=== PATIENT | female | born 1975 | race Caucasian/White ===

== ENCOUNTER → 2024-04-17 08:19 | Outpatient (REF) | payer OTHER, SELFPAY | LOC: HWWDC 08:19 | PROVIDERS: ATTENDING PHYSICIAN Obstetrics & Gynecology; FAMILY PHYSICIAN Family Medicine | DX: Z12.31 Encounter for screening mammogram for malignant neoplasm of breast (principal) | CPT/HCPCS: 77063; 77067 ==

== ENCOUNTER 2025-03-25 19:21 | Emergency (ER) | payer OTHER, SELFPAY ==
[2025-03-25 19:25] VITALS: BP 136/87
[2025-03-25 21:39] VITALS: BMI 23.1
--- NOTE | 2025-03-25 22:41 | ED.GENMED ---
History of Present Illness
General
Chief Complaint: Skin Problem
Source: patient
Exam Limitations: none
Time Seen by Provider: 03/25/25 21:58
Nursing documentation reviewed up to this point in time: agreed with
History of Present Illness
History of Present Illness:
Patient is a 49-year-old female who presents to the emergency department with laceration of left eyebrow. Patient states she was walking up her outdoor steps quickly while holding her laptop when she tripped and fell striking her face on the
sliding glass door. She did not lose consciousness. She was able to get up independently and has been ambulating without difficulty.
Patient presents with laceration to left brow. She denies any headache or neck pain. No vomiting, visual changes, dizziness. No pain in extremities.
She is unsure of her last tetanus shot, possibly within the past 5 years. Patient is not on any blood thinners.
Review of Systems
Review of Systems
Allergies reviewed?: Yes
All Other Systems: ROS reviewed and negative except as documented in HPI and ROS
Phy Exam
Physical Exam
Physical Exam:
Vitals: Mildly hypertensive, otherwise vital signs stable. Afebrile
General: Patient is well appearing, no acute distress
Skin: Approximately 1.5 cm linear laceration just inferior to left brow. Minimal active bleeding
Head: Normocephalic. Laceration to left brow as above. Contusion to left infraorbital region. EOMIs intact without entrapment. No evidence of ocular injury.
Throat: Protecting airway
Neck: Normal ROM, no cervical spine tenderness
Cardiac: Regular rate
Pulm: No apparent respiratory distress
Abdomen: Nondistended
Extremities: No evidence of cyanosis or edema
Neuro: Grossly intact
Psychiatric: Normal affect.
Course
Vital Signs
Initial and Last Documented VS:
Initial Vital Signs
Temp Pulse Resp BP Pulse Ox
98.3 F 65 18 136/87 99
03/25/25 19:25 03/25/25 19:25 03/25/25 19:25 03/25/25 19:25 03/25/25 19:25
Last Documented Vital Signs
Temp Pulse Resp BP Pulse Ox
98.3 F 65 18 136/87 99
03/25/25 19:25 03/25/25 19:25 03/25/25 19:25 03/25/25 19:25 03/25/25 22:41
Procedures
Laceration Closure
Left Eye brow:
Status of Wound: clean
Size of Wound in cm: 1.5
Description of Wound Edges: sharp
Preparation: cleaned with saline
Revision/Debridement: routine- no revision
Wound exploration: explored to base- no FB
Type of Closure: Dermabond-skin glue
MDM/Problems Addressed
Differential Diagnosis Includes:
Not limited to: Laceration, abrasion, contusion, etc.
MDM/Problems Addressed:
55-year-old female presenting with small laceration of left eyebrow following mechanical trip and fall just prior to arrival. No loss of consciousness, vomiting, visual changes. Vitals stable. On exam � patient has approximately 1.5 cm superficial
laceration just inferior to left brow. No evidence of significant head trauma and patient neurologically intact � do not feel head CT imaging indicated at this time.
Patient also seen by attending physician to evaluate laceration. Discussed sutures versus skin adhesive. Will proceed with skin adhesive.
Verbal consent obtained by patient. Wound irrigated with normal saline and laceration closed with skin adhesive. Wound edges well approximated and hemostasis obtained. Patient tolerated procedure well. Wound care instructions discussed at length
with patient
Patient unsure of her exact last dose of a tetanus booster. Advised booster in ED however patient declines and will check with her PCP on her most recent dose and receive booster if needed.
Stable for discharge with return precautions
Chronic conditions affecting care:
N/A
Acute Exacerbation and/or Progression of Chronic Illness:
N/A
*Pulse Oximetry
SaO2: 99
Oxygen Mode of Delivery: Room air
Patient hypoxic: no
*EKG
Interpreted by ED Provider?: NA
*Refrigeration Mechanic Interpretation
Rate: Refrigeration Mechanic- N/A
*Critical Care Note
Total Time (30-74mins, 75-104mins- exclusive of procedures): Not Applicable
ED Attending Note
-
Portions of this chart may have been created with voice recognition software.� Occasional wrong word or��sound alike� substitutions may have occurred due to the inherent limitations of voice recognition software.
Discharge Plan
Departure
Patient Disposition: Home (Routine Discharge)
Date of Disposition: 03/25/25
Time of Disposition: 22:20
Patient with high blood pressure during this ER visit?: Yes
Discharge Problem:
Laceration of left eyebrow
Instructions: Wound Care (DC), Laceration Repair With Glue ED, BLOOD PRESSURE
Prescriptions:
No Action
prenat.vits,yudy,omk-fblu-gwnjk [ Vitamin] 1 TAB tablet
Singulair 10 MG Tablet
10 mg PO
Iron
Teller 3-6-9 Complex Softgel
Referrals:
Jose Angel Womack, DO [Active, Plastic Surgery]
UNKNOWN - PT DOES,NOT KNOW [Unknown Provider]
Activity Restrictions/Additional Instructions:
RETURN TO THE EMERGENCY DEPARTMENT WITH ANY BLEEDING THAT WOULD NOT STOP AT HOME OR ANY SIGNS OF WOUND INFECTION INCLUDING FEVER, SIGNIFICANT REDNESS OR PUS DRAINING FROM WOUND, WORSENING IN CURRENT SYMPTOMS, OR ANY OTHER CONCERNS
-Your laceration was closed with skin glue in the emergency department. This will dissolve on its own over the next week. Please keep wound clean, dry, and covered. Monitor for signs of infection.
-As discussed�this will likely leave a small scar. Once glue has dissolved you can apply a small amount of Vaseline. It is important to be diligent with sun protection to improve the scar appearance.
Monitor your symptoms closely and return to the emergency department with any acute worsening/new symptoms or any other concerns
Interventions
Interventions:
*Risk Screen - Suicide Last Done: 03/25/25 19:31
*General Assessment Last Done: 03/25/25 21:39
*Neglect/Abuse Screening Last Done: 03/25/25 19:31
*ED- Fall Risk Assessment Last Done: 03/25/25 21:39
*ED COVID-19 Vaccine History Last Done: 03/25/25 21:39
*Nursing Disposition Last Done: 03/25/25 22:31
ED-Skin Assessment Last Done: 03/25/25 22:32
Discharge Date and Time
Discharge Date/Time: 03/25/25 22:32
Print Language: [place]
== END 2025-03-25 22:32 | disposition home or self-care (01) ==
LOC: EMR 19:21
PROVIDERS: EMERGENCY PHYSICIAN Emergency Medicine; FAMILY PHYSICIAN Family Medicine
DX: S01.112A Laceration without foreign body of left eyelid and periocular area, initial encounter (principal); W10.9XXA Fall (on) (from) unspecified stairs and steps, initial encounter
CPT/HCPCS: 12011; 99282